=== PATIENT | female | born 1945 | race Caucasian/White ===

== ENCOUNTER 2019-11-16 16:56 | Inpatient (IN) ==
--- NOTE | 2019-11-16 16:48 | Emergency Department Note ---
Impression & Plan Acute KS, Chest pain ED Provider Note Provider: Leonel Newman MD DATE OF SERVICE: 11/16/2019 CHIEF COMPLAINT: Chest pain HISTORY OF PRESENT ILLNESS: Patient is a 74-year-old female presenting via ambulance today with reports of chest pain. Called EMS prior to arrival who states that she was mowing the lawn and sat down and began to experience chest discomfort. Called EMS. There EKG was concerning for ST elevation. Made a heart alert prior to arrival. Patient is a history of hypertension hyperlipidemia. Was given aspirin, nitroglycerin, and some fentanyl prior to arrival as well as IV fluids. Patient on presentation endorses continued chest pain. She denies a cardiac history with stents but states several years ago she had a cardiac cath that was negative. States the pain radiates straight to her back and states he was bit nauseous earlier. Denies a history of similar pain. 8 out of 10 chest pain. REVIEW OF SYSTEMS: A total of 10 review of systems was obtained and negative except as stated above in the HPI. PAST MEDICAL HISTORY: As noted above MEDICATIONS: Reviewed home medications which include atorvastatin among others SOCIAL HISTORY: lives at home with PHYSICAL EXAM: GENERAL: alert and oriented in no acute distress on stretcher Head: normocephalic and atraumatic EYES: No injection, discharge or icterus. NECK: Trachea midline. Supple. ENT: Mucous membranes pink and moist. LUNGS: Airway patent. No retractions. Breath sounds clear with good air entry bilaterally. HEART: Regular rate and rhythm. No chest wall tenderness ABDOMEN: Soft and non-tender, without guarding or rebound. SKIN: Acyanotic, warm, dry, without rashes EXTREMITIES: Without swelling, tenderness or deformity NEUROLOGICAL: No focal deficits. No aphasia. No facial droop or slurred speech. EK beats minute normal sinus rhythm. No PVCs. Patient does have anterior particular V2 ST elevation welling some slight lead I and aVL ST changes. No priors to today were available as she is not been in the system before. Patient's hypertension was referred to the hospitalist/information security risk analyst Patient's laboratory studies reviewed. Differential includes Cardiac ischemia, aortic dissection, pulmonary embolism, pneumothorax, pneumonia, pericarditis, myocarditis, esophageal rupture, GERD, cholecystitis, pancreatitis, musculoskeletal, as well as other pathologies. IMPRESSION/MEDICAL DECISION MAKING: Onset chest pain after exertion concerning EKG changes concerning for ST segment elevation [place]. Dr. Mejia cardiology at bedside and consenting patient on review of case. Patient was given aspirin prior to arrival with fentanyl with minimal change in symptoms. No trauma history. Does not seem infectious given the history. Given EKG changes heart alert was called prior to arrival and was evaluate by cardiology here. Does have multiple cardiac risk factors. Given concern for ST segment KS was taken to the [facility] for further diagnostic and possible therapeutic interventions. Basic labs were sent without evidence of anemia or leukocytosis. No evidence of severe renal dysfunction. Troponin is elevated on labs when they returned consistent with concern for ST elevation and coronary ischemia. No evidence of transaminitis or lipase elevation. Further anticoagulation with plavix/brillinta or heparin deferred to electroplating laborer team as there were present and ready to take the patient to the lab. Chest xray deferred in discussion with cardiology. DIAGNOSIS: ST segment elevation KS, chest pain DISPOSITION: Transfer to the [facility] Critical Care I have personally spent 31 minutes of critical care time in the direct ma nagement of this patient. This includes bedside care, interpretation of diagnostic studies, and testing, discussion with consultants, patient, and family members, and other required patient management activities. These 31 minutes is in excess of all separately billable procedures. Past Med/Surg History Social History Smoking Status: Unknown if ever smoked Feels Safe at Home: Yes Results & Data (ED) Vital Signs Vital Signs - 24 hr 11/16/19 17:02 11/16/19 17:03 11/16/19 17:05 Temperature 37.0 C Temperature Source Oral Pulse Rate 66 69 72 Respiratory Rate 18 Blood Pressure 123/73 123/73 Blood Pressure Mean 85 89 Pulse Oximetry 94 Oxygen Delivery Method Room Air Sepsis Recent Fever Within 48 Hours No Sepsis New/Unexplained Change in Mental Status No Sepsis Action Taken by Nursing No Action Required Laboratory Data Result diagrams: 11/16/19 17:06 11/16/19 17:06 Lab Results 11/16/19 11/16/19 11/16/19 Range/Units 17:06 17:06 17:06 WBC 9.94 (4.8-10.8) K/uL RBC 4.34 (4.2-5.4) M/uL Hgb 13.1 (12.0-16.0) g/dL Hct 39.2 (37-47) % MCV 90.3 (80-100) fL MCH 30.2 (25-34) pg MCHC 33.4 (32-36) g/dL RDW Std Deviation 44.8 (36.4-46.3) fL RDW Coeff of Khurram 13.5 (11.5-14.5) % Plt Count 195 (130-400) K/uL MPV 11.4 H (7.4-10.4) fL Immature Gran % (Auto) 0.3 % Neut % (Auto) 67.3 % Lymph % (Auto) 22.8 % [place] % (Auto) 6.6 % Eos % (Auto) 2.5 % Baso % (Auto) 0.5 % Neut # (Auto) 6.68 H (1.4-6.5) K/uL Lymph # (Auto) 2.27 (1.2-3.4) K/uL [place] # (Auto) 0.66 H (0.11-0.59) K/uL Eos # (Auto) 0.25 (0-0.5) K/uL Baso # (Auto) 0.05 (0-0.2) K/uL Immature Gran # (Auto) 0.03 H (0.00-0.02) K/uL PT 10.6 (9.0-12.0) Seconds INR 1.0 (0.9-1.1) APTT 22.4 (21.0-31.0) Seconds PTT Ratio 0.8 Sodium 140 (136-145) mmol/L Potassium 3.7 (3.5-5.1) mmol/L Chloride 108 H (98-107) mmol/L Carbon Dioxide 22 (21-32) mmol/L Anion Gap 10.0 (3-11) BUN 22 H (7-18) mg/dl Creatinine 1.19 (0.6-1.2) mg/dl Est Cr Clr Drug Dosing 57.7 ml/min Est GFR ( Amer) 52.8 Est GFR (Non-Af Amer) 45.6 BUN/Creatinine Ratio 18.7 (10-20) Glucose 155 H (70-99) mg/dl Calcium 8.9 (8.5-10.1) mg/dl Magnesium 2.1 (1.8-2.4) mg/dl Total Bilirubin 0.3 (0.2-1) mg/dl AST 26 (15-37) U/L ALT 20 (12-78) U/L Alkaline Phosphatase 68 (45-117) U/L Total Creatine Kinase 156 (26-192) U/L CK-MB (CK-2) 13.2 H (0.5-3.6) ng/ml CK/CKMB % Calc 8.5 H (0-3.0) Troponin I 0.866 H* (0-0.045) ng/ml Total Protein 7.2 (6.4-8.2) gm/dl Albumin 3.7 (3.4-5.0) gm/dl Globulin 3.5 (2.5-4.0) gm/dl Albumin/Globulin Ratio 1.1 (0.9-2) Lipase 114 (73-393) U/L TSH 3.400 (0.300-4.500) uIu/ml Administered Medications Discontinued Medications Eptifibatide (Eptifibatide 2 Mg/Ml 10 Ml Vial ([facility] Use Only)) Confirm Adm inistered Dose 40 mg IV .STK-MED ONE Stop: 11/16/19 17:36 Last Admin: 11/16/19 17:56 Dose: 22.6 ml Documented by: [id number] Eptifibatide (Eptifibatide 0.75 Mg/Ml 75mg Vial ([facility] Use Only)) Confirm Administered Dose 75 mg .ROUTE .STK-MED ONE Stop: 11/16/19 17:37 Last Increment: 11/16/19 18:14 Dose: 20 mg Documented by: [id number] Fentanyl Citrate (Fentanyl Citrate 100 Mcg/2 Ml Vial) Confirm Administered Dose 100 mcg .ROUTE .STK-MED ONE Stop: 11/16/19 16:42 Last Increment: 11/16/19 18:13 Dose: 25 mcg Documented by: [id number] Heparin Sodium (Porcine) (Heparin (Porcine) 1000 Unit/Ml 10 Ml ([facility] Use Only)) Confirm Administered Dose 10,000 units .ROUTE .STK-MED ONE Stop: 11/16/19 16:42 Last Admin: 11/16/19 18:12 Dose: 8,000 units Documented by: [id number] Heparin Sodium/Sodium Chloride (Heparin In Nss Infusion 1000 Unit/500 Ml (2 U/Ml) Bag) Confirm Administered Dose 3,000 units IV .STK-MED ONE Stop: 11/16/19 16:42 Last Admin: 11/16/19 17:55 Dose: 3,000 units Documented by: [id number] Midazolam HCl (Midazolam Hcl 1 Mg/Ml 2ml Vial) Confirm Administered Dose 2 mg .ROUTE [email or web address] ONE Stop: 11/16/19 16:42 Last Increment: 11/16/19 18:12 Dose: 1 mg Documented by: [id number] Nicardipine HCl (Nicardipine Hcl Inj 2.5 Mg/Ml 10 Ml Amp) Confirm Administered Dose 25 mg .ROUTE [email or web address] ONE Stop: 11/16/19 16:42 Last Admin: 11/16/19 17:55 Dose: 25 mg Documented by: [id number] Nitroglycerin/Dextrose (Nitroglycerin/D5w 100mcg/Ml 20ml Syr) Confirm Administered Dose 2,000 mcg .ROUTE .[employer] ONE Stop: 11/16/19 16:43 Last Admin: 11/16/19 17:55 Dose: 2,000 mcg Documented by: [id number] Ondansetron HCl (Ondansetron Inj 2 Mg/Ml 2 Ml Vial) Confirm Administered Dose 4 mg .ROUTE .[employer]ify ONE Stop: 11/16/19 17:12 Last Admin: 11/16/19 17:56 Dose: 4 mg Documented by: [id number] Ticagrelor (Ticagrelor 90 Mg Tab) Confirm Administered Dose 180 mg PO .Estify ONE Stop: 11/16/19 17:12 Last Admin: 11/16/19 17:56 Dose: 180 mg Documented by: [id number] Discharge Plan Visit Data Chief Complaint: Heart Alert Stated Complaint: HEART ALERT ED Provider: Leonel Newman Discharge Problem: Acute KS, Chest pain Discharge Instructions Interventions: ED Discharge Assessment Last Done: 11/16/19 17:08 Forms Stand Alone Forms: [facility] Referrals Referrals: PCP,NO [Primary Care Provider] - Discharge Problem: Acute KS Qualifiers: Myocardial infarction type: ST elevation myocardial infarction Involved coronary artery: unspecified coronary artery Qualified Code(s): I21.3 - ST elevation (STEMI) myocardial infarction of unspecified site Chest pain Qualifiers: Chest pain type: unspecified Qualified Code(s): R07.9 - Chest pain, unspecified
[~2019-11-16 16:56] MED LIST: HEPARIN (PORCINE) 1000 UNIT/ML 10 ML (CATH LAB USE ONLY) ONE; MIDAZOLAM HCL 1 MG/ML 2ML VIAL ONE; NITROGLYCERIN/D5W 100MCG/ML 20ML SYR ONE; NiCARDipine HCL INJ 2.5 MG/ML 10 ML AMP ONE; fentaNYL citrate 100 MCG/2 ML VIAL ONE
[2019-11-16] MEDS ORDERED: ONDANSETRON INJ 2 MG/ML 2 ML VIAL ONE (17:11)
[2019-11-16] MEDS ORDERED: TICAGRELOR 90 MG TAB PO ONE (17:11)
--- NOTE | 2019-11-16 17:11 | Pre Anesthesia Assessment ---
Date of Service November 16, 2019 Pre Sedation Assessment Cardiovascular RRR, no murmur, no edema Respiratory normal respiratory effort, lungs clear to auscultation Pre-Sedation Airway Assessment Smoking Status: Unknown if ever smoked Hx Sleep Apnea: No Hx Difficult Intubation: No Short, Thick Neck: No Thyromental Distance: > or= 3.5 Finger Breadths Oral Cavity: + Dental Abnormalities ASA: ASA4 Procedure Planning Contraindications for Sedation: none Current Medications Reviewed: Yes Notes The planned sedation has been discussed with the patient. Informed Consent was obtained. I have identified the patient, determined the appropriateness of sedation and have assessed the patient immediately prior to the procedure. All medicine(s) and interventions are by my order.
--- NOTE | 2019-11-16 17:15 | Cardiology Consultation ---
Date of Consultation November 16, 2019 Assessment & Plan (1) Acute CT: Presentation consistent with anterolateral STEMI and recommend proceeding with emergent cardiac catheterization and likely primary PCI. No apparent contraindications to procedure. Discussed risks, benefits, alternatives of procedure with patient and they are willing to proceed. Further recommendations pending findings of coronary angiography. History of Present Illness History of Present Illness 76-year-old woman here with acute chest pain and ECG concerning for acute CT. Patient seen emergently in the ED after heart alert activated en route by EMS. Past cardiac history remarkable for remote heart catheterization by Dr. Muller. Per patient told she has small vessel disease if not require stenting. Cardiac risk factors include hypertension, dyslipidemia. No other significant medical issues. Chest pain began approximately 20 minutes prior to calling EMS. Symptoms began after she was mowing her lawn with a push mower. Describes 8/10 substernal pain with associated vomiting, diaphoresis. Denies similar symptoms in the past. Given nitroglycerin, fentanyl in route. Pain down to 6/10 on arrival. Hemodynamically stable. EKG showed sinus rhythm with lateral ST elevations and occasional PVCs. Patient History Social History Smoking Status: Unknown if ever smoked Feels Safe at Home: Yes Review of Systems Review of Systems: Not obtained in the setting of emergent situation Physical Exam Physical Exam: General: Uncomfortable HEENT: Sclerae anicteric, mucous membranes moist Lungs: Clear to auscultation bilaterally, no rhonchi or wheezes Cardiac: Tachycardic, regular, no murmurs Abdomen: Soft, nontender Extremities: Warm, well perfused, no edema. 2+ radial pulses Skin: No rashes or lesions. Neuro: Nonfocal Psych: Alert orient x3, normal affect and mood PG Care Time/CCT Total # of Minutes Spent Total Time Spent with Patient: Total time spent is greater than 50% in coordination of care (as documented) at patient's floor/unit and/or counseling patient: Coding Level of Care Code 57894 Inpt Consult Level [address] I21.9
[2019-11-16 17:21] LABS: Basophils # (auto) 0.05 K/uL (0-0.2); Basophils % (auto) 0.5 %; Eosinophils # (auto) 0.25 K/uL (0-0.5); Eosinophils % (auto) 2.5 %; Hematocrit (blood only) 39.2 % (37-47); Hemoglobin 13.1 g/dL (12.0-16.0); Immature Granulocytes # (auto) 0.03 K/uL (0.00-0.02); Immature Granulocytes % (auto) 0.3 %; Lymphocytes # (auto) 2.27 K/uL (1.2-3.4); Lymphocytes % (auto) 22.8 %; Mean Corpuscular Hemoglobin 30.2 pg (25-34); Mean Corpuscular Hgb Conc 33.4 g/dL (32-36); Mean Corpuscular Volume 90.3 fL (80-100); Mean Platelet Volume 11.4 fL (7.4-10.4); Monocytes # (auto) 0.66 K/uL (0.11-0.59); Monocytes % (auto) 6.6 %; Neutrophils # (auto) 6.68 K/uL (1.4-6.5); Neutrophils % (auto) 67.3 %; Platelet Count 195 K/uL (130-400); RDW Coefficient of Variation 13.5 % (11.5-14.5); RDW Standard Deviation 44.8 fL (36.4-46.3); Red Blood Count 4.34 M/uL (4.2-5.4); White Blood Count 9.94 K/uL (4.8-10.8)
[2019-11-16 17:32] LABS: Partial Thromboplastin Ratio 0.8; Partial Thromboplastin Time 22.4 Seconds (21.0-31.0); Prothrombin Time 10.6 Seconds (9.0-12.0)
[2019-11-16] MEDS ORDERED: EPTIFIBATIDE 2 MG/ML 10 ML VIAL (CATH LAB USE ONLY) IV ONE (17:35)
[2019-11-16 17:38] LABS: Albumin Level 3.7 gm/dl (3.4-5.0); BUN Creatinine Ratio 18.7 (10-20); Calcium 8.9 mg/dl (8.5-10.1); Creatinine Clr Calc Pharmacy 57.7 ml/min; Est GFR (African American) 52.8; Est GFR (Non-African American) 45.6; Magnesium 2.1 mg/dl (1.8-2.4); Potassium 3.7 mmol/L (3.5-5.1)
[2019-11-16] MEDS: EPTIFIBATIDE 0.75 MG/ML 75MG VIAL (CATH LAB USE ONLY) ONE ×2 (17:56→18:14)
[2019-11-16 18:12] LABS: Albumin Globulin Ratio 1.1 (0.9-2); Bilirubin,Total 0.3 mg/dl (0.2-1); Creatine Kinase MB 13.2 ng/ml (0.5-3.6); Globulin 3.5 gm/dl (2.5-4.0); Thyroid Stimulating Hormone 3.4 uIu/ml (0.300-4.500); Total Protein 7.2 gm/dl (6.4-8.2); Troponin I 0.866 ng/ml (0-0.045)
--- NOTE | 2019-11-16 18:33 | Post Anesthesia Assessment ---
Date of Service November 16, 2019 Post Sedation Assessment Vital Signs Temp Pulse Resp BP Pulse Ox 11/16/19 17:05 72 11/16/19 17:03 98.6 F 69 18 123/73 94 11/16/19 17:02 66 123/73 Recovery Score Activity: Moves 4 extremities Respiration: Deep Breath/Cough Circulation: +/-20% PreAnes Value Consciousness: Fully Awake Oxygen Saturation: O2 needed for >90% Discharge Sedation Level of Care: Fast Track Phase II Post Sedation Plan On clinical assessment, the patient appears to have tolerated the sedation without complications. Patient is recovering as anticipated. Patient will continue to be monitored by nursing and may be discharged when sedation discharge criteria are met per below protocol. Upon Completions of procedure up to 15 minutes continue every 5 minute vital signs and the P.A.R. score; then discharge to a Phase I or Fast Track to Phase II per the following guidelines: * Discharge Patient to appropriate Phase II area if PAR is 8 or greater or return to pre- procedure baseline. The post - procedure orders will be as directed. * If PAR score is less than 8 or not return to pre-procedure baseline then patient will follow Phase I monitoring till PAR is reached for Phase II. The Phase I may be done in procedure room or may call to secure a Phase I area. * If naloxone or flumazenil are used for reversal, hold in Phase I for continued monitoring from when last reversal dose was given for a minimum of 60 minutes or longer pending the nurse and/or physician discretion of patient condition before discharge to Phase II. Please call the Sedation Physician to re-evaluate and complete post-note for discharge to Phase II area. Do NOT discharge from procedure sedation or Phase 1 until post- sedation evaluation note is complete by procedure /sedation MD Sedation Discharge Instructions to be given to the patient at discharge to home.
[2019-11-16] MEDS ORDERED: ONDANSETRON INJ 2 MG/ML 2 ML VIAL IV PRN (18:35)
[2019-11-16] MEDS ORDERED: EPTIFIBATIDE BOLUS/DRIP IV STA (18:35)
[2019-11-16] MEDS ORDERED: ACETAMINOPHEN 325 MG TAB PO PRN (18:35)
[2019-11-16] MEDS ORDERED: ATROPINE SULFATE 0.1 MG/ML 10ML SYR IV PRN (18:35)
[2019-11-16] MEDS ORDERED: NITROGLYCERIN SL 0.4 MG/TAB TAB SL PRN (18:35)
[2019-11-16] MEDS ORDERED: ICU PROTOCOL FOR HYPERGLYCEMIA PRN (18:40)
[2019-11-16] MEDS: EPTIFIBATIDE 75 MG/100 ML VIAL IV SCH ×2 (18:45→23:45)
--- NOTE | 2019-11-16 19:01 | Cardiac Catheterization ---
[facility] Data: Granulator Cardiac Status Clinical evaluation leading to the procedure CAD Presenation: STEMI Anginal Classification: CCS IV Heart Failure: No Cardiogenic Shock within 24 Hours: No Cardiac Arrest within 24 Hours: No Imaging Studies Past 6 Months: No Stress Studies Past 6 Months: No Diagnostic Physicians Name: Jeff Mejia MD Status: Emergency Closure Device Percutaneous Entry Location: Radial Closure Device: Radial Band Recommendations: PCI without planned CABG PCI Indication: Immediate PCI for STEMI First Noted: First EKG Lesion Segment Name: Proximal LAD Culprit Artery: Yes Stenosis Prior to Rx (%): 100 Chronic Total Occlusion: No IVUS: Yes FFR: No Pre-Procedure SELVIN Flow: 0 Previously Treated Lesion: No Lesion Complexity: Non-High/Non-C Lesion Length (mm): 45 Thrombus Present: Yes Bifurcation Lesion: Yes Guidewire Across Lesion: Stenosis Post-Procedure (%): 0 Post-Procedure SELVIN Flow: 3 Devices(s) Deployed: Yes Yes Intraprocedure Events Significant Disection: No Perforation: No Cardiac Cath Procedure Full Procedure Date November 16, 2019 Pre-Procedure Diagnosis Pre-Procedure Diagnosis: STEMI AUC Score AUC Score: 9 Post-Procedure Diagnosis Post-Procedure Diagnosis: Severe CAD, Successful PCI and Elevated Intracardiac Pressures Procedure(s) Performed Procedure(s) Performed: Coronary Angiography, Left Heart Cath, LV Angiography, Drug Eluting Stent and IVUS Financial Administration Officer Jeff Mejia MD Automation Software Engineer(s) Bello Estimated Blood Loss Estimated Blood Loss: 15 Medication(s) Medication(s): Fentanyl, Heparin, Integrilin, Lidocaine 1%, Nicardipine, Nitroglycerin and Versed Medication(s): Ticagrelor Summary of Findings Indication: STEMI/Heart Alert Access: 6 Fr slender right radial artery Catheters: EBU 3.0 guide, diagnostic JR4, pigtail Findings: LM -medium caliber vessel, luminal irregularities LAD -acute 100% proximal occlusion Circumflex -medium caliber vessel, 20% diffuse mid segment disease, large OM 3 without significant disease RCA -dominant, medium caliber, angiographically normal LVEDP -36 LVEF 40% with anterior, apical hypokinesis -- PCI -- Antithrombotic therapy: Heparin, ticagrelor, Integrilin Procedure: Left main cannulated with EBU 3.0 guide Lamp Tester And Inspector 50 wire passed across lesion into distal vessel Proximal to mid LAD lesion predilated with 2.5 compliant balloon Noted to have diffuse disease extending to mid segment with heavy thrombus burden Started on IC Integrilin IVUS used to assess extent of disease, degree of calcification and for vessel sizing. Noted to have severe diffuse disease from ostium to mid segment with thrombus. Mildly calcified. Dilated mid segment stented with 2.75 x 33 mm Xience Grace Ostial/proximal segment stented with 3.5 x 28 mm Xience Grace overlapping with proximal aspect of initial stent Small caliber second diagonal wired with aircraft pilot 50 wire Stent post-dilated with 4.0 noncompliant balloon IC vasodilators administered for spasm Repeat IVUS showed well apposed, well-expanded stents ending proximally just at the ostium Post procedure SELVIN 3 flow, stent well expanded with minimal residual stenosis and no apparent cardiac complications. SELVIN I-II flow in small second diagonal improving at end of procedure. Arterial Closure: TR band Summary: 1. Acute 100% proximal LAD occlusion 2. Minimal non-culprit vessel coronary artery disease 3. Elevated intracardiac filling pressure 4. Successful PCI of ostial to mid LAD with 2 overlapping drug-eluting stents (3.5 x 28, 2.75 x 33 mm Xience Grace; postdilated with 4.0 NC). Recommendations: Admit to ICU for continued monitoring Continue Integrilin infusion for 6 hours Loaded with ticagrelor 180 mg in Granulator Continue dual-antiplatelet therapy for at least 1 year. Trend troponins until peak, Check Echo Uptitrate beta-janelle/JESUS MANUEL as BP allows High-dose statin Consult cardiac Rehab Hemodynamics Rest Ao:: 115/54/83 Final Ao: 126/64/77 LV: 127/36 Recommendations Recommendations: PCI without planned CABG Specimens Specimens: None Radiation Exposure (mGy) 2986 Contrast (mls) 130 Fluids (cc crystalloids) Fluids (cc crystalloids): 110 Drains Drains: None Anesthesia Moderate Procedural Complication(s) None Disposition ICU I attest to the content of the Intraoperative Record and any orders documented therein. Any exceptions are noted below. [facility] Card Cath Procedure Codes Cardiac Catheterization Procedure 1: Cardiovascular Cath Procedures: 23272 Coronaries and LHC (+/-LV) Therapeutic Services & Ancillary Proc Procedure 1: Cardiovascular Tx and Anc Procedures: 90591 IV Ultrasound (Coronary or Graft) Moderate Sedation Procedure 1: Sedation/Anesthesia: 65650 Mod Sedation by the same physician;Init15 Min Child Age 5 & Up Procedure 2: Sedation/Anesthesia: 74497 Mod Sedation by the same physician; Ea [id number] Minutes Stenting Procedure 1: Cardiovascular Stent Procedures: 77639 Perc transluminal revascularization of acute sub/total occl, aMI PG Care Time/CCT Total # of Minutes Spent Total Time Spent with Patient: Total time spent is greater than 50% in coordination of care (as documented) at patient's floor/unit and/or counseling patient:
--- NOTE | 2019-11-16 19:20 | Critical Care Consultation ---
Date of Consultation November 16, 2019 Assessment & Plan (1) STEMI (ST elevation myocardial infarction): Reason Critically Ill: 74-year-old female presents to the ICU following STEMI and receiving PCI with ADEN x2 to the LAD Neuro - [facility] ICU: HEAD: No headache, dizziness, or head injury. Cardiac - STEMIstatus post heart cath with successful PCI with ADEN x2 to the LAD for 100% occlusion -Appreciate cardiology recommendations -We will continue Integrilin drip for 6 hours as patient was noted to have residual clotting during procedure Loaded with ticagrelor 180 mg in [facility] -Trending troponins -Follow-up echo report in a.m. -Maximize electrolytes -Dual antiplatelet therapy for 1 year -Continue beta-janelle and high-dose statin -Monitor on telemetry in ICU overnight Respiratory - Hypoxiano history of pulmonary disease, now requiring 6 L nasal cannula -Would suspect there is pulmonary congestion following acute WI, will give IV diuretic if unable to wean from O2 -Continuous monitoring with pulse ox and wean oxygen as tolerated GI - Heart healthy diet RENAL/LYTES - Creatinine within normal limits, monitor electrolytes and replete as indicated - Strict I's and O's ENDO - No history of diabetes or thyroid disease TSH within normal limit ICU hyperglycemic protocol HEME - H&H stable, monitor routine CBCs ID - No indication for infectious process at this time LINES/IV ACCESS - Peripheral IVs DVT PROPHYLAXIS - SCDs, currently on Integrilin drip Thank you for allowing us to participate in the care of this patient. Please refer to my attending physician's documentation for any further recommendations. (2) HTN (hypertension): (3) Dyslipidemia: (4) CAD (coronary artery disease): (5) Chest pain: (6) Acute WI: Supervising Physician Co-Signing Physician Notes I have personally evaluated and examined this patient. I agree with assessment and plan of Cameron WEAVER. Please refer to my resident documentation which is reflective of my evaluation of the patient. History of Present Illness Attending Physician: Jeff Mejia MD History of Present Illness 74-year-old female with PMH of HTN, dyslipidemia and prior heart cath where she was noted to have small vessel disease not requiring stenting. She presented to the emergency department earlier today with acute chest pain that started about 20 minutes prior to calling EMS, which had started while she was mowing her lawn. She describes symptoms 8/10 substernal pain with associated vomiting and diaphoresis. On arrival she was found to have lateral ST elevations on the EKG and elevated troponin. Heart alert was initiated patient was taken to [facility] where she was found to have 100% occlusion of the LAD. She underwent successful PCI of ostial to mid LAD with 2 overlapping ADEN. She was placed on Integrilin drip prior to transfer. She now presents to the ICU post cath with stenting for further management and observation following STEMI. On arrival to the ICU patient is alert and oriented and hemodynamically stable. She appears comfortable and states that her chest pain has significantly better and rates it as a 1/10. She currently denies headache, dizziness, syncope, shortness of breath, nausea or vomiting, recent illness or fevers, palpitations, abdominal pain. She did state that since she has been having bilateral leg swelling for the past couple of days, which has not been an issue in the past. Allergies Allergy/AdvReac Type Severity Reaction Status Date / Time Penicillins Allergy Intermediate Rash Verified 11/16/19 21:27 Home Medications Home Medications Medication Instructions Recorded Confirmed Type amlodipine-benazepril 1 cap PO DAILY 11/17/19 11/17/19 History atorvastatin 20 mg PO DAILY 11/17/19 11/17/19 History citalopram 20 mg PO DAILY 11/17/19 11/17/19 History dicyclomine [Bentyl] 10 mg PO DAILY 11/17/19 11/17/19 History Patient History Medical History (Updated 11/17/19 @ 00:53 by Dangelo Colindres MD) Dyslipidemia HTN (hypertension) IBS (irritable bowel syndrome) Morbid obesity with BMI of 40.0-44.9, adult Social History Smoking Status: Never smoker Hx Alcohol Use: Yes Alcohol type: beer Hx Substance Use: No Preferred Language: Somali Communication Ability: Effective Data Administrator Required: No Beliefs That Will Affect Care: None marital status: Current Living Situation: Spouse Other Information That Helps Us Care for You: No Feels Safe at Home: Yes Safety Concerns: Feels Safe At This Time Review of Systems Review of Systems: All systems reviewed & are unremarkable except as noted in HPI & below Physical Exam Constitutional: WD/WN, vitals as above cooperative and comfortable Eyes: PERRL, conjunctivae normal, anicteric sclerae ENMT: external ear and nose normal, oropharynx normal Neck: trachea midline, no thyromegaly Respiratory: normal respiratory effort, lungs clear to auscultation Auscultation: no crackles and no wheezes Cardiovascular: Rate/Rhythm: regular rate and regular rhythm Heart Sounds: normal S1 and normal S2 Vessels: no JVD Bilateral lower extremity edema +1 Gastrointestinal (Abdomen): normal bowel sounds, soft, nontender, no hepatosplenomegaly Musculoskeletal: no cyanosis or clubbing, extremities motor strength 5/5 Skin: no rashes, warm and dry Neurologic: PERRL, EOMI, accommodation nl, no face palsy, no dysarthria Psychiatric: A+Ox3, euthymic affect Results & Data Results & Data ([facility]) Vital Signs (Past 12 Hours) Vital Signs Temp Pulse Resp BP Pulse Ox 11/16/19 17:05 72 11/16/19 17:03 37.0 C 69 18 123/73 94 11/16/19 17:02 66 123/73 Coding Level of Care Code 14564 Office/OBS Consult Lvl 5 Diagnoses STEMI (ST elevation myocardial infarction) I21.3 HTN (hypertension) I10 Dyslipidemia E78.5 CAD (coronary artery disease) I25.10 Chest pain R07.9 Chest pain type: unspecified Acute WI I21.3 Involved coronary artery: unspecified coronary artery Myocardial infarction type: ST elevation myocardial infarction (1) Acute WI Involved coronary artery: unspecified coronary artery Myocardial infarction type: ST elevation myocardial infarction Qualified Code(s): I21.3 - ST elevation (STEMI) myocardial infarction of unspecified site (2) Chest pain Chest pain type: unspecified Qualified Code(s): R07.9 - Chest pain, unsp ecified
[2019-11-16] MEDS: METOPROLOL TARTRATE 25 MG TAB PO SCH (21:43)
[2019-11-16] MEDS ORDERED: FUROSEMIDE 20 MG in SYRINGE 0 ML IV ONE (21:45)
[2019-11-16 22:20] LABS: Appearance Urine Clear (Clear); Bacteria Urine Automated Negative (Negative); Bilirubin Urine Negative (Negative); Blood Urine 1+ (Negative); Color Urine Yellow; Glucose Urine UA Negative (Negative); Ketones Urine Negative (Negative); Leukocyte Esterase Urine Negative (Negative); Nitrite Urine Negative (Negative); Protein Urine Negative (Negative); RBC Urine Automated 0-4 /hpf (0-4); Specific Gravity Urine 1.036 (1.000-1.030); Urobilinogen Urine Negative (Negative); pH Urine 5.5 (4.5-7.5)
[2019-11-16] MEDS ORDERED: ALBUMIN 5% 250 ML IV SCH (23:30)
--- NOTE | 2019-11-17 01:01 | History & Physical Report ---
Date of Service November 17, 2019 Assessment & Plan (1) STEMI (ST elevation myocardial infarction): Continue ASA 81mg daily. Brilinta 90 mg daily metoprolol tartrate 25mg bid lisinopril 5mg daily. Stop amlodipine 10mg daily. Stop benazepril 20mg daily Present on Admission?: Yes (2) Admitted to intensive care unit: Admission to ICU for post cath management. Consult ICU Dr. Mace and interventional cardiology Dr. Mejia Present on Admission?: Yes (3) IBS (irritable bowel syndrome): continue citalopram 20mg daily and dicyclomine 10 mg daily Present on Admission?: Yes (4) Dyslipidemia: change atorvastatin from 20 to 80mg daily. check a FLP amd HbA1c Present on Admission?: Yes (5) CAD (coronary artery disease): see above Present on Admission?: Yes (6) HTN (hypertension): see above Present on Admission?: Yes (7) Morbid obesity with BMI of 40.0-44.9, adult: discuss dietary and post procedure interventions Present on Admission?: Yes Admission and Anticipated Discharge Date Admission Date: November 16, 2019 History of Present Illness Chief Complaint: The patient presented to the ED via EMS with complaint of chest pain radiating to her back that began after she sat down after she was mowing her lawn. She was made a heart alert prior to arrival due to possible STEMI Primary Care Provider: NO PCP The patient is a 74 yo female with PMH including HTN, ISB, HLD and obesity who presented as above. She was taken emergently to the geoscience laboratory technician by Dr. Mejia, and received ADEN x 2 to a 100% proximal LAD lesion. She was then taken to the ICU for post procedure management. Allergies Allergy/AdvReac Type Severity Reaction Status Date / Time Penicillins Allergy Intermediate Rash Verified 11/16/19 21:27 Home Medications Home Medications Medication Instructions Recorded Confirmed Type amlodipine-benazepril 1 cap PO DAILY 11/17/19 11/17/19 History atorvastatin 20 mg PO DAILY 11/17/19 11/17/19 History citalopram 20 mg PO DAILY 11/17/19 11/17/19 History dicyclomine [Bentyl] 10 mg PO DAILY 11/17/19 11/17/19 History Past Med/Surg History Medical History (Updated 11/17/19 @ 00:53 by Dangelo Colindres MD) Dyslipidemia HTN (hypertension) IBS (irritable bowel syndrome) Morbid obesity with BMI of 40.0-44.9, adult Social History Smoking Status: Never smoker Hx Alcohol Use: Yes Alcohol type: beer Hx Substance Use: No Preferred Language: Hungarian Communication Ability: Effective Edge Beader Required: No Beliefs That Will Affect Care: None Current Living Situation: Spouse Other Information That Helps Us Care for You: No Feels Safe at Home: Yes Safety Concerns: Feels Safe At This Time Review of Systems Review of Systems: Postprocedure, the patient denies chest pain, palpitations, shortness of breath, dyspnea on exertion, cough, sore throat, fevers, chills, sweats, nausea, vomiting, diarrhea , constipation, abdominal pain, pelvic pain, blood in urine or stool, dysuria, urinary frequency or urgency, headache, imbalance, focal weakness, numbness or tingling in arms or legs, generalized arthralgias or myalgias, back or neck pain, or night sweats. The review of systems is otherwise negative other than for that already noted above, and at least 10 systems have been reviewed. Physical Exam Physical Exam: The patient is awake, alert and oriented 3, normocephalic and atraumatic, lying in bed and in no acute distress. HEENT--PERRL, EOMI, mucous membranes and oropharynx normal. Neck--supple. No JVD. No bruits. Thyroid normal, trachea midline, no adenopathy. Heart--normal S1 and S2. No murmurs, rubs or gallops. Lungs--clear bilaterally, no respiratory distress, no accessory muscle use. Abdomen--normal bowel sounds and soft. Nontender. Nondistended. Extremities--no cyanosis or clubbing. No edema. Dermatologic--normal skin turgor, normal color. Neurologic--cranial nerves II through XII grossly intact. Rheumatologic--normal range of motion. Psychiatric--normal affect. Results & Data Results & Data ([facility]) Vital Signs (Past 12 Hours) Vital Signs Temp Pulse Pulse Resp BP BP Pulse Ox 11/17/19 00:20 98.1 F 58 L 18 108/74 94 11/16/19 23:20 59 L 18 115/82 93 11/16/19 22:20 64 18 125/68 94 11/16/19 21:29 75 21 124/78 90 11/16/19 20:20 68 18 130/80 91 11/16/19 19:50 66 22 123/90 93 11/16/19 19:17 67 22 122/78 95 11/16/19 19:02 64 21 131/81 90 11/16/19 18:47 97.9 F 65 20 114/69 91 11/16/19 17:05 72 11/16/19 17:03 98.6 F 69 18 123/73 94 11/16/19 17:02 66 123/73 Laboratory Results Laboratory Results WBC 9.94 K/uL (4.8-10.8) 11/16/19 17:06 RBC 4.34 M/uL (4.2-5.4) 11/16/19 17:06 Hgb 13.1 g/dL (12.0-16.0) 11/16/19 17:06 Hct 39.2 % (37-47) 11/16/19 17:06 MCV 90.3 fL (80-100) 11/16/19 17:06 MCH 30.2 pg (25-34) 11/16/19 17:06 MCHC 33.4 g/dL (32-36) 11/16/19 17:06 RDW Std Deviation 44.8 fL (36.4-46.3) 11/16/19 17:06 RDW Coeff of Khurram 13.5 % (11.5-14.5) 11/16/19 17:06 Plt Count 195 K/uL (130-400) 11/16/19 17:06 MPV 11.4 fL (7.4-10.4) H 11/16/19 17:06 Immature Gran % (Auto) 0.3 % 11/16/19 17:06 Neut % (Auto) 67.3 % 11/16/19 17:06 Lymph % (Auto) 22.8 % 11/16/19 17:06 Bibb % (Auto) 6.6 % 11/16/19 17:06 Eos % (Auto) 2.5 % 11/16/19 17:06 Baso % (Auto) 0.5 % 11/16/19 17:06 Neut # (Auto) 6.68 K/uL (1.4-6.5) H 11/16/19 17:06 Lymph # (Auto) 2.27 K/uL (1.2-3.4) 11/16/19 17:06 Bibb # (Auto) 0.66 K/uL (0.11-0.59) H 11/16/19 17:06 Eos # (Auto) 0.25 K/uL (0-0.5) 11/16/19 17:06 Baso # (Auto) 0.05 K/uL (0-0.2) 11/16/19 17:06 Immature Gran # (Auto) 0.03 K/uL (0.00-0.02) H 11/16/19 17:06 PT 10.6 Seconds (9.0-12.0) 11/16/19 17:06 INR 1.0 (0.9-1.1) 11/16/19 17:06 APTT 22.4 Seconds (21.0-31.0) 11/16/19 17:06 PTT Ratio 0.8 11/16/19 17:06 Activ Coag Time Kaolin 224 SECONDS (94-140) H 11/16/19 18:08 Sodium 140 mmol/L (136-145) 11/16/19 17:06 Potassium 3.7 mmol/L (3.5-5.1) 11/16/19 17:06 Chloride 108 mmol/L (98-107) H 11/16/19 17:06 Carbon Dioxide 22 mmol/L (21-32) 11/16/19 17:06 Anion Gap 10.0 (3-11) 11/16/19 17:06 BUN 22 mg/dl (7-18) H 11/16/19 17:06 Creatinine 1.19 mg/dl (0.6-1.2) 11/16/19 17:06 Est Cr Clr Drug Dosing 57.7 ml/min 11/16/19 17:06 Est GFR ( Amer) 52.8 11/16/19 17:06 Est GFR (Non-Af Amer) 45.6 11/16/19 17:06 BUN/Creatinine Ratio 18.7 (10-20) 11/16/19 17:06 Glucose 155 mg/dl (70-99) H 11/16/19 17:06 POC Glucose 163 mg/dl (70-99) H 11/16/19 20:34 Calcium 8.9 mg/dl (8.5-10.1) 11/16/19 17:06 Magnesium 2.1 mg/dl (1.8-2.4) 11/16/19 17:06 Total Bilirubin 0.3 mg/dl (0.2-1) 11/16/19 17:06 AST 26 U/L (15-37) 11/16/19 17:06 ALT 20 U/L (12-78) 11/16/19 17:06 Alkaline Phosphatase 68 U/L (45-117) 11/16/19 17:06 Total Creatine Kinase 156 U/L (26-192) 11/16/19 17:06 CK-MB (CK-2) 13.2 ng/ml (0.5-3.6) H 11/16/19 17:06 CK/CKMB % Calc 8.5 (0-3.0) H 11/16/19 17:06 Troponin I 0.866 ng/ml (0-0.045) H* 11/16/19 17:06 Total Protein 7.2 gm/dl (6.4-8.2) 11/16/19 17:06 Albumin 3.7 gm/dl (3.4-5.0) 11/16/19 17:06 Globulin 3.5 gm/dl (2.5-4.0) 11/16/19 17:06 Albumin/Globulin Ratio 1.1 (0.9-2) 11/16/19 17:06 Lipase 114 U/L (73-393) 11/16/19 17:06 TSH 3.400 uIu/ml (0.300-4.500) 11/16/19 17:06 Urine Color Yellow 11/16/19 22:05 Urine Appearance Clear (Clear) 11/16/19 22:05 Urine pH 5.5 (4.5-7.5) 11/16/19 22:05 Ur Specific [place] 1.036 (1.000-1.030) H 11/16/19 22:05 Urine Protein Negative (Negative) 11/16/19 22:05 Urine Glucose (UA) Negative (Negative) 11/16/19 22:05 Urine Ketones Negative (Negative) 11/16/19 22:05 Urine Blood 1+ (Negative) H 11/16/19 22:05 Urine Nitrite Negative (Negative) 11/16/19 22:05 Urine Bilirubin Negative (Negative) 11/16/19 22:05 Urine Urobilinogen Negative (Negative) 11/16/19 22:05 Ur Leukocyte Esterase Negative (Negative) 11/16/19 22:05 Urine WBC (Auto) 1-5 /hpf (0-5) 11/16/19 22:05 Urine RBC (Auto) 0-4 /hpf (0-4) 11/16/19 22:05 U Hyaline Cast (Auto) 1-5 /lpf (0-5) 11/16/19 22:05 U Epithel Cells (Auto) 10-20 /lpf (0-5) H 11/16/19 22:05 Urine Bacteria (Auto) Negative (Negative) 11/16/19 22:05 Nasal Screen MRSA (PCR) Negative (Negative) 11/16/19 19:30 Code Status & VTE Plan Code Status full code VTE Prophylaxis Plan VTE Prophylaxis will be ordered: Yes Critical Care Time Critical Care Time: Yes Total Critical Care Time: 40 PG Care Time/CCT Total # of Minutes Spent Total Time Spent with Patient: Total time spent is greater than 50% in coordination of care (as documented) at patient's floor/unit and/or counseling patient: Critical Care Time: Yes Total Critical Care Time: 40 Coding Level of Care Code 69687 Initial Inpt Care Lvl 3 Diagnoses STEMI (ST elevation myocardial infarction) I21.3 Admitted to intensive care unit Z78.9 IBS (irritable bowel syndrome) K58.9 Dyslipidemia E78.5 CAD (coronary artery disease) I25.10 HTN (hypertension) I10 Morbid obesity with BMI of 40.0-44.9, adult E66.01; Z68.41 Additional Codes Critical Care Time - Critical Care Time: Yes ([id number]) Time Spent (min) 40
[2019-11-17 06:08] LABS: Basophils # (auto) 0.01 K/uL (0-0.2); Basophils % (auto) 0.1 %; Eosinophils # (auto) 0.01 K/uL (0-0.5); Eosinophils % (auto) 0.1 %; Hematocrit (blood only) 40.5 % (37-47); Hemoglobin 13.5 g/dL (12.0-16.0); Immature Granulocytes # (auto) 0.03 K/uL (0.00-0.02); Immature Granulocytes % (auto) 0.3 %; Lymphocytes # (auto) 0.89 K/uL (1.2-3.4); Lymphocytes % (auto) 8.3 %; Mean Corpuscular Hgb Conc 33.3 g/dL (32-36); Mean Platelet Volume 11.2 fL (7.4-10.4); Monocytes # (auto) 0.86 K/uL (0.11-0.59); Neutrophils # (auto) 8.96 K/uL (1.4-6.5); Neutrophils % (auto) 83.2 %; Platelet Count 183 K/uL (130-400); RDW Coefficient of Variation 13.7 % (11.5-14.5); RDW Standard Deviation 45.1 fL (36.4-46.3); White Blood Count 10.76 K/uL (4.8-10.8)
[2019-11-17] MEDS: TICAGRELOR 90 MG TAB PO SCH ×2 (06:15→19:47)
[2019-11-17 06:45] LABS: BUN Creatinine Ratio 20.6 (10-20); Calcium 9.1 mg/dl (8.5-10.1); Creatinine Clr Calc Pharmacy 60.8 ml/min; Est GFR (African American) 62.2; Est GFR (Non-African American) 53.6; Potassium 3.9 mmol/L (3.5-5.1)
--- NOTE | 2019-11-17 07:01 | XRay Report ---
XR chest 1V portable CLINICAL HISTORY: post cardiac cath RESPIRATORY DIFFICULTY COMPARISON STUDY: No previous studies for comparison. FINDINGS: The heart is borderline enlarged. There is elevation of interstitium asymmetric on the righ t. Asymmetric congestive failure/early pulmonary edema is suspected. There is no lobar consolidation. There is minor left basilar atelectasis.[ IMPRESSION: 1. Suspected subtle asymmetric congestive failure/pulmonary edema on the right. Clinical and radiogra phic follow-up is recommended. ACT 112: Negative or not required by law. Electronically signed by: Jose Mason M.D. 11/17/2019 6:59 AM
[2019-11-17 07:06] LABS: Troponin I 88.4 ng/ml (0-0.045)
--- NOTE | 2019-11-17 07:57 | Critical Care Progress Note ---
Date of Service November 17, 2019 Assessment & Plan (1) STEMI (ST elevation myocardial infarction): Reason Critically Ill: 74-year-old female presents to the ICU following STEMI and receiving PCI with ADEN x2 to the LAD; stable for downgrade from ICU following continued improvement in condition. Neuro: - CAM ICU negative Cardiac/Vascular: - STEMI: s/p heart cath with successful PCI with ADEN x2 to the LAD for 100% occlusion - Appreciate cardiology recommendations - Loaded with ticagrelor 180 mg in Clinical Lab Assistant - troponins peaked at 109, with subsequent downtrend overnight following cath - Echo demonstrated - Dual antiplatelet therapy for 1 year - decreased Lopressor from 2mg BID to 12.5mg BID - continue Zestril 5mg daily, Lopressor 12.5mg BID, Atorvastatin 80mg daily Respiratory: - Hypoxia: no history of pulmonary disease - no longer requiring supplemental oxygen support - Would suspect there is pulmonary congestion following acute DE - Continuous monitoring with pulse ox GI/Nutrition: - Heart healthy diet - Bentyl PRN for IBS RENAL/LYTES: - Creatinine within normal limits, monitor electrolytes : - Strict I's and O's - maki removed ENDO: - No history of diabetes or thyroid disease - TSH within normal limit - ICU hyperglycemic protocol HEME: - H&H stable, monitor routine CBCs ID: - No indication for infectious process at this time LINES/IV ACCESS: - PIVs x2 DVT Prophylaxis: - ambulate q8h (2) HTN (hypertension): (3) Dyslipidemia: (4) CAD (coronary artery disease): (5) Acute DE: Admission and Anticipated Discharge Date Admission Date: November 16, 2019 Supervising Physician Co-Signing Physician Notes Dr. Ugarte was resident physician during care of patient. I separately evaluated patient for anderson portions of the history and the exam. I was present during the critical portion of medical decision making, and I discussed the case with the resident. I generally agree with the findings and plan. Transition Bentyl from scheduled to as needed, I suspect that this was given as a as needed medication. Patient stable for downgrade and transfer out of ICU. Subjective Had no acute events overnight, continues to deny chest pain, shortness of breath, numbness/tingling, nausea, vomiting, abdominal pain, or increased swelling in her arms or legs Review of Systems Review of Systems: All systems reviewed & are unremarkable except as noted in Subjective Physical Exam Constitutional: WD/WN, vitals as above Eyes: PERRL, conjunctivae normal, anicteric sclerae Neck: trachea midline, no thyromegaly Respiratory: normal respiratory effort, lungs clear to auscultation Cardiovascular: Rate/Rhythm: regular rate and regular rhythm Heart Sounds: no gallop, no murmur and no cardiac rub Extremities: no pedal edema Gastrointestinal (Abdomen): normal bowel sounds, soft, nontender, no hepatosplenomegaly Musculoskeletal: no cyanosis or clubbing, extremities motor strength 5/5 Skin: no rashes, warm and dry Neurologic: PERRL, EOMI, accommodation nl, no face palsy, no dysarthria haritha p tendon reflexes 2+ bilaterally and moves all extremities Psychiatric: Orientation: alert and oriented x 3 Lymphatic: no cervical lymphadenopathy Results & Data Results & Data ([facility]) Vital Signs (Past 12 Hours) Vital Signs Temp Pulse Pulse Resp BP BP Pulse Ox 11/17/19 06:45 62 17 119/75 93 11/17/19 06:15 62 19 117/76 91 11/17/19 05:45 63 17 121/75 93 11/17/19 05:15 59 L 17 117/83 93 11/17/19 04:45 58 L 18 118/75 93 11/17/19 04:15 36.7 C 60 19 118/79 94 11/17/19 03:45 61 19 116/79 95 11/17/19 03:14 62 19 111/70 95 11/17/19 02:51 61 18 105/70 96 11/17/19 02:14 61 18 120/80 97 11/17/19 01:45 58 L 15 111/78 96 11/17/19 01:15 62 17 119/80 95 11/17/19 00:20 36.7 C 58 L 18 108/74 94 11/16/19 23:20 59 L 18 115/82 93 11/16/19 22:20 64 18 125/68 94 11/16/19 21:29 75 21 124/78 90 11/16/19 20:20 68 18 130/80 91 Laboratory Results 11/17/19 11/17/19 11/17/19 Range/Units 05:47 05:47 05:47 WBC 10.76 (4.8-10.8) K/uL RBC 4.50 (4.2-5.4) M/uL Hgb 13.5 (12.0-16.0) g/dL Hct 40.5 (37-47) % MCV 90.0 (80-100) fL MCH 30.0 (25-34) pg MCHC 33.3 (32-36) g/dL RDW Std Deviation 45.1 (36.4-46.3) fL RDW Coeff of Khurram 13.7 (11.5-14.5) % Plt Count 183 (130-400) K/uL MPV 11.2 H (7.4-10.4) fL Immature Gran % (Auto) 0.3 % Neut % (Auto) 83.2 % Lymph % (Auto) 8.3 % Stone % (Auto) 8.0 % Eos % (Auto) 0.1 % Baso % (Auto) 0.1 % Neut # (Auto) 8.96 H (1.4-6.5) K/uL Lymph # (Auto) 0.89 L (1.2-3.4) K/uL Stone # (Auto) 0.86 H (0.11-0.59) K/uL Eos # (Auto) 0.01 (0-0.5) K/uL Baso # (Auto) 0.01 (0-0.2) K/uL Immature Gran # (Auto) 0.03 H (0.00-0.02) K/uL PT (9.0-12.0) Seconds INR (0.9-1.1) APTT (21.0-31.0) Seconds PTT Ratio Activ Coag Time Kaolin (94-140) SECONDS Sodium 139 (136-145) mmol/L Potassium 3.9 (3.5-5.1) mmol/L Chloride 107 (98-107) mmol/L Carbon Dioxide 24 (21-32) mmol/L Anion Gap 8.0 (3-11) BUN 21 H (7-18) mg/dl Creatinine 1.04 (0.6-1.2) mg/dl Est Cr Clr Drug Dosing 60.8 ml/min Est GFR ( Amer) 62.2 Est GFR (Non-Af Amer) 53.6 BUN/Creatinine Ratio 20.6 H (10-20) Glucose 122 H (70-99) mg/dl POC Glucose (70-99) mg/dl Estimat Average Glucose 111 mg/dl Hemoglobin A1c 5.5 (4.5-5.6) % Calcium 9.1 (8.5-10.1) mg/dl Magnesium (1.8-2.4) mg/dl Total Bilirubin (0.2-1) mg/dl AST (15-37) U/L ALT (12-78) U/L Alkaline Phosphatase (45-117) U/L Total Creatine Kinase (26-192) U/L CK-MB (CK-2) (0.5-3.6) ng/ml CK/CKMB % Calc (0-3.0) Troponin I 88.400 H* (0-0.045) ng/ml Total Protein (6.4-8.2) gm/dl Albumin (3.4-5.0) gm/dl Globulin (2.5-4.0) gm/dl Albumin/Globulin Ratio (0.9-2) Triglycerides 122 (0-150) mg/dl Cholesterol 210 H (0-200) mg/dl LDL Cholesterol, Calc 124 mg/dl VLDL Cholesterol, Calc 24 mg/dl HDL Cholesterol 62 mg/dl Cholesterol/HDL Ratio 3 Lipase (73-393) U/L TSH (0.300-4.500) uIu/ml Urine Color Urine Appearance (Clear) Urine pH (4.5-7.5) Ur Specific [place] (1.000-1.030) Urine Protein (Negative) Urine Glucose (UA) (Negative) Urine Ketones (Negative) Urine Blood (Negative) Urine Nitrite (Negative) Urine Bilirubin (Negative) Urine Urobilinogen (Negative) Ur Leukocyte Esterase (Negative) Urine WBC (Auto) (0-5) /hpf Urine RBC (Auto) (0-4) /hpf U Hyaline Cast (Auto) (0-5) /lpf U Epithel Cells (Auto) (0-5) /lpf Urine Bacteria (Auto) (Negative) Nasal Screen MRSA (PCR) (Negative) 11/17/19 11/16/19 11/16/19 Range/Units 00:29 22:05 20:34 WBC (4.8-10.8) K/uL RBC (4.2-5.4) M/uL Hgb (12.0-16.0) g/dL Hct (37-47) % MCV (80-100) fL MCH (25-34) pg MCHC (32-36) g/dL RDW Std Deviation (36.4-46.3) fL RDW Coeff of Khurram (11.5-14.5) % Plt Count (130-400) K/uL MPV (7.4-10.4) fL Immature Gran % (Auto) % Neut % (Auto) % Lymph % (Auto) % Stone % (Auto) % Eos % (Auto) % Baso % (Auto) % Neut # (Auto) (1.4-6.5) K/uL Lymph # (Auto) (1.2-3.4) K/uL [place] # (Auto) (0.11-0.59) K/uL Eos # (Auto) (0-0.5) K/uL Baso # (Auto) (0-0.2) K/uL Immature Gran # (Auto) (0.00-0.02) K/uL PT (9.0-12.0) Seconds INR (0.9-1.1) APTT (21.0-31.0) Seconds PTT Ratio Activ Coag Time Kaolin (94-140) SECONDS Sodium (136-145) mmol/L Potassium (3.5-5.1) mmol/L Chloride (98-107) mmol/L Carbon Dioxide (21-32) mmol/L Anion Gap (3-11) BUN (7-18) mg/dl Creatinine (0.6-1.2) mg/dl Est Cr Clr Drug Dosing ml/min Est GFR ( Amer) Est GFR (Non-Af Amer) BUN/Creatinine Ratio (10-20) Glucose (70-99) mg/dl POC Glucose 163 H (70-99) mg/dl Estimat Average Glucose mg/dl Hemoglobin A1c (4.5-5.6) % Calcium (8.5-10.1) mg/dl Magnesium (1.8-2.4) mg/dl Total Bilirubin (0.2-1) mg/dl AST (15-37) U/L ALT (12-78) U/L Alkaline Phosphatase (45-117) U/L Total Creatine Kinase (26-192) U/L CK-MB (CK-2) (0.5-3.6) ng/ml CK/CKMB % Calc (0-3.0) Troponin I 109.000 H* (0-0.045) ng/ml Total Protein (6.4-8.2) gm/dl Albumin (3.4-5.0) gm/dl Globulin (2.5-4.0) gm/dl Albumin/Globulin Ratio (0.9-2) Triglycerides (0-150) mg/dl Cholesterol (0-200) mg/dl LDL Cholesterol, Calc mg/dl VLDL Cholesterol, Calc mg/dl HDL Cholesterol mg/dl Cholesterol/HDL Ratio Lipase (73-393) U/L TSH (0.300-4.500) uIu/ml Urine Color Yellow Urine Appearance Clear (Clear) Urine pH 5.5 (4.5-7.5) Ur Specific [place] 1.036 H (1.000-1.030) Urine Protein Negative (Negative) Urine Glucose (UA) Negative (Negative) Urine Ketones Negative (Negative) Urine Blood 1+ H (Negative) Urine Nitrite Negative (Negative) Urine Bilirubin Negative (Negative) Urine Urobilinogen Negative (Negative) Ur Leukocyte Esterase Negative (Negative) Urine WBC (Auto) 1-5 (0-5) /hpf Urine RBC (Auto) 0-4 (0-4) /hpf U Hyaline Cast (Auto) 1-5 (0-5) /lpf U Epithel Cells (Auto) 10-20 H (0-5) /lpf Urine Bacteria (Auto) Negative (Negative) Nasal Screen MRSA (PCR) (Negative) 11/16/19 11/16/19 11/16/19 Range/Units 19:30 18:08 17:45 WBC (4.8-10.8) K/uL RBC (4.2-5.4) M/uL Hgb (12.0-16.0) g/dL Hct (37-47) % MCV (80-100) fL MCH (25-34) pg MCHC (32-36) g/dL RDW Std Deviation (36.4-46.3) fL RDW Coeff of Khurram (11.5-14.5) % Plt Count (130-400) K/uL MPV (7.4-10.4) fL Immature Gran % (Auto) % Neut % (Auto) % Lymph % (Auto) % Stone % (Auto) % Eos % (Auto) % Baso % (Auto) % Neut # (Auto) (1.4-6.5) K/uL Lymph # (Auto) (1.2-3.4) K/uL [place] # (Auto) (0.11-0.59) K/uL Eos # (Auto) (0-0.5) K/uL Baso # (Auto) (0-0.2) K/uL Immature Gran # (Auto) (0.00-0.02) K/uL PT (9.0-12.0) Seconds INR (0.9-1.1) APTT (21.0-31.0) Seconds PTT Ratio Activ Coag Time Kaolin 224 H 285 H (94-140) SECONDS Sodium (136-145) mmol/L Potassium (3.5-5.1) mmol/L Chloride (98-107) mmol/L Carbon Dioxide (21-32) mmol/L Anion Gap (3-11) BUN (7-18) mg/dl Creatinine (0.6-1.2) mg/dl Est Cr Clr Drug Dosing ml/min Est GFR ( Amer) Est GFR (Non-Af Amer) BUN/Creatinine Ratio (10-20) Glucose (70-99) mg/dl POC Glucose (70-99) mg/dl Estimat Average Glucose mg/dl Hemoglobin A1c (4.5-5.6) % Calcium (8.5-10.1) mg/dl Magnesium (1.8-2.4) mg/dl Total Bilirubin (0.2-1) mg/dl AST (15-37) U/L ALT (12-78) U/L Alkaline Phosphatase (45-117) U/L Total Creatine Kinase (26-192) U/L CK-MB (CK-2) (0.5-3.6) ng/ml CK/CKMB % Calc (0-3.0) Troponin I (0-0.045) ng/ml Total Protein (6.4-8.2) gm/dl Albumin (3.4-5.0) gm/dl Globulin (2.5-4.0) gm/dl Albumin/Globulin Ratio (0.9-2) Triglycerides (0-150) mg/dl Cholesterol (0-200) mg/dl LDL Cholesterol, Calc mg/dl VLDL Cholesterol, Calc mg/dl HDL Cholesterol mg/dl Cholesterol/HDL Ratio Lipase (73-393) U/L TSH (0.300-4.500) uIu/ml Urine Color Urine Appearance (Clear) Urine pH (4.5-7.5) Ur Specific [place] (1.000-1.030) Urine Protein (Negative) Urine Glucose (UA) (Negative) Urine Ketones (Negative) Urine Blood (Negative) Urine Nitrite (Negative) Urine Bilirubin (Negative) Urine Urobilinogen (Negative) Ur Leukocyte Esterase (Negative) Urine WBC (Auto) (0-5) /hpf Urine RBC (Auto) (0-4) /hpf U Hyaline Cast (Auto) (0-5) /lpf U Epithel Cells (Auto) (0-5) /lpf Urine Bacteria (Auto) (Negative) Nasal Screen MRSA (PCR) Negative (Negative) 11/16/19 11/16/19 11/16/19 Range/Units 17:06 17:06 17:06 WBC 9.94 (4.8-10.8) K/uL RBC 4.34 (4.2-5.4) M/uL Hgb 13.1 (12.0-16.0) g/dL Hct 39.2 (37-47) % MCV 90.3 (80-100) fL MCH 30.2 (25-34) pg MCHC 33.4 (32-36) g/dL RDW Std Deviation 44.8 (36.4-46.3) fL RDW Coeff of Khurram 13.5 (11.5-14.5) % Plt Count 195 (130-400) K/uL MPV 11.4 H (7.4-10.4) fL Immature Gran % (Auto) 0.3 % Neut % (Auto) 67.3 % Lymph % (Auto) 22.8 % Stone % (Auto) 6.6 % Eos % (Auto) 2.5 % Baso % (Auto) 0.5 % Neut # (Auto) 6.68 H (1.4-6.5) K/uL Lymph # (Auto) 2.27 (1.2-3.4) K/uL Stone # (Auto) 0.66 H (0.11-0.59) K/uL Eos # (Auto) 0.25 (0-0.5) K/uL Baso # (Auto) 0.05 (0-0.2) K/uL Immature Gran # (Auto) 0.03 H (0.00-0.02) K/uL PT 10.6 (9.0-12.0) Seconds INR 1.0 (0.9-1.1) APTT 22.4 (21.0-31.0) Seconds PTT Ratio 0.8 Activ Coag Time Kaolin (94-140) SECONDS Sodium 140 (136-145) mmol/L Potassium 3.7 (3.5-5.1) mmol/L Chloride 108 H (98-107) mmol/L Carbon Dioxide 22 (21-32) mmol/L Anion Gap 10.0 (3-11) BUN 22 H (7-18) mg/dl Creatinine 1.19 (0.6-1.2) mg/dl Est Cr Clr Drug Dosing 57.7 ml/min Est GFR ( Amer) 52.8 Est GFR (Non-Af Amer) 45.6 BUN/Creatinine Ratio 18.7 (10-20) Glucose 155 H (70-99) mg/dl POC Glucose (70-99) mg/dl Estimat Average Glucose mg/dl Hemoglobin A1c (4.5-5.6) % Calcium 8.9 (8.5-10.1) mg/dl Magnesium 2.1 (1.8-2.4) mg/dl Total Bilirubin 0.3 (0.2-1) mg/dl AST 26 (15-37) U/L ALT 20 (12-78) U/L Alkaline Phosphatase 68 (45-117) U/L Total Creatine Kinase 156 (26-192) U/L CK-MB (CK-2) 13.2 H (0.5-3.6) ng/ml CK/CKMB % Calc 8.5 H (0-3.0) Troponin I 0.866 H* (0-0.045) ng/ml Total Protein 7.2 (6.4-8.2) gm/dl Albumin 3.7 (3.4-5.0) gm/dl Globulin 3.5 (2.5-4.0) gm/dl Albumin/Globulin Ratio 1.1 (0.9-2) Triglycerides (0-150) mg/dl Cholesterol (0-200) mg/dl LDL Cholesterol, Calc mg/dl VLDL Cholesterol, Calc mg/dl HDL Cholesterol mg/dl Cholesterol/HDL Ratio Lipase 114 (73-393) U/L TSH 3.400 (0.300-4.500) uIu/ml Urine Color Urine Appearance (Clear) Urine pH (4.5-7.5) Ur Specific [place] (1.000-1.030) Urine Protein (Negative) Urine Glucose (UA) (Negative) Urine Ketones (Negative) Urine Blood (Negative) Urine Nitrite (Negative) Urine Bilirubin (Negative) Urine Urobilinogen (Negative) Ur Leukocyte Esterase (Negative) Urine WBC (Auto) (0-5) /hpf Urine RBC (Auto) (0-4) /hpf U Hyaline Cast (Auto) (0-5) /lpf U Epithel Cells (Auto) (0-5) /lpf Urine Bacteria (Auto) (Negative) Nasal Screen MRSA (PCR) (Negative) Resident Activity Tracking Resident Involvement: Resident Care Provided Care Provided: Adult Hospital Medicine (Critical Care) (1) Acute DE Involved coronary artery: unspecified coronary artery Myocardial infarction type: ST elevation myocardial infarction Qualified Code(s): I21.3 - ST elevation (STEMI) myocardial infarction of unspecified site
[2019-11-17 08:26] LABS: Estimated Average Glucose 111 mg/dl; Hemoglobin A1C 5.5 % (4.5-5.6)
[2019-11-17] MEDS: ATORVASTATIN 40 MG TAB PO SCH (08:41)
[2019-11-17] MEDS: ASPIRIN 81 MG ECTAB PO SCH (08:41)
[2019-11-17] MEDS: CITALOPRAM 20 MG TAB PO SCH (08:41)
[2019-11-17] MEDS: METOPROLOL TARTRATE 25 MG TAB PO SCH ×3 (08:42→19:47)
[2019-11-17] MEDS: lisinopriL 5 MG TAB PO SCH ×2 (08:42→10:23)
[2019-11-17] MEDS ORDERED: DICYCLOMINE HCL 10 MG CAP PO SCH (09:00)
--- NOTE | 2019-11-17 11:12 | Cardiology Progress Note ---
Date of Service November 17, 2019 Assessment & Plan (1) STEMI (ST elevation myocardial infarction): 2. Ischemic cardiomyopathylast EF 35%, LAD distribution wall motion abnormality 3. Acute systolic heart failure 4. Hypertension 5. Dyslipidemia Minimal residual chest pain this morning. Troponin has peaked. Hemodynamically and electrically stable overnight Well-perfused with minimal residual congestion on exam after IV Lasix No apparent access site complications Post procedure renal function stable Continue DAPT with aspirin, ticagrelor Continue current metoprolol, lisinopril. Will add spironolactone Continue high intensity statin Okay to transfer to telemetry today. Plan for repeat limited echo tomorrow to eval for LV thrombus. Possible discharge tomorrow if remains stable. Admission and Anticipated Discharge Date Admission Date: November 16, 2019 Subjective Still with mild residual resting chest discomfort. Much improved from adm ission. No significant dyspnea. Difficulty urinating last night and maki in place. Telemetry reviewed -- no events Echo - EF 35-40%, Anterior and apical severe hypokinesis to akinesis. Review of Systems Review of Systems: All systems reviewed & are unremarkable except as noted in HPI & below Physical Exam Physical Exam: General: Comfortable, up in chair HEENT: Sclerae anicteric, mucous membranes moist Lungs: Clear to auscultation bilaterally, no rhonchi or wheezes Cardiac: Regular, no murmurs. No JVD Abdomen: Soft, nontender Extremities: Warm, well perfused, no edema. 2+ radial pulses bilaterally. RT radial without ecchymosis or hematoma Neuro: Nonfocal Psych: Alert orient x3, normal affect and mood Results & Data ([facility]) Vital Signs (Past 12 Hours) Vital Signs Temp Pulse Pulse Resp BP BP Pulse Ox 11/17/19 11:01 67 20 109/79 94 11/17/19 10:01 69 20 113/72 92 11/17/19 09:01 70 24 110/73 92 11/17/19 08:16 98.4 F 66 24 82/62 L 93 11/17/19 07:45 77 22 81/73 L 93 11/17/19 07:15 71 19 95/62 L 92 11/17/19 06:45 62 17 119/75 93 11/17/19 06:15 62 19 117/76 91 11/17/19 05:45 63 17 121/75 93 11/17/19 05:15 59 L 17 117/83 93 11/17/19 04:45 58 L 18 118/75 93 11/17/19 04:15 98.1 F 60 19 118/79 94 11/17/19 03:45 61 19 116/79 95 11/17/19 03:14 62 19 111/70 95 11/17/19 02:51 61 18 105/70 96 11/17/19 02:14 61 18 120/80 97 11/17/19 01:45 58 L 15 111/78 96 11/17/19 01:15 62 17 119/80 95 11/17/19 00:20 98.1 F 58 L 18 108/74 94 11/16/19 23:20 59 L 18 115/82 93 PG Care Time/CCT Total # of Minutes Spent Total Time Spent with Patient: Total time spent is greater than 50% in coordination of care (as documented) at patient's floor/unit and/or counseling patient: Coding Level of Care Code 15017 Subseq Hosp Care Lvl 3 Diagnoses STEMI (ST elevation myocardial infarction) I21.3
[2019-11-17] MEDS: SPIRONOLACTONE 12.5 MG TAB PO SCH (12:03)
--- NOTE | 2019-11-17 13:45 | Billing Data ---
Date of Service November 17, 2019 Coding Level of Care Code 43140 Subseq Hosp Care Lvl 2
--- NOTE | 2019-11-17 16:00 | XCELERA ---
[id number]
--- NOTE | 2019-11-17 20:57 | Electrocardiogram Report ---
Test Reason : Blood Pressure : / mmHG Vent. Rate : 067 BPM Atrial Rate : 067 BPM P-R Int : 130 ms QRS Dur : 108 ms QT Int : 430 ms P-R-T Axes : 052 -30 046 degrees QTc Int : 454 ms Normal sinus rhythm Left axis deviation Minimal voltage criteria for LVH, may be normal variant Septal infarct , age undetermined ST elevation, consider lateral injury ST elevation, consider anterior injury Abnormal ECG No previous ECGs available Confirmed by Herbert Garcia ([id number]) on 11/17/2019 8:57:32 PM Referred By: REFERRED SELF Confirmed By:Herbert Garcia
--- NOTE | 2019-11-17 21:04 | Electrocardiogram Report ---
Test Reason : Blood Pressure : / mmHG Vent. Rate : 066 BPM Atrial Rate : 066 BPM P-R Int : 136 ms QRS Dur : 104 ms QT Int : 402 ms P-R-T Axes : 065 -32 053 degrees QTc Int : 421 ms Normal sinus rhythm Left axis deviation Minimal voltage criteria for LVH, may be normal variant ST elevation, consider lateral injury pattern Lateral infarct Abnormal ECG When compared with ECG of 16-NOV-2019 17:03, ST no longer elevated in Anterior leads Confirmed by Herbert Garcia ([id number]) on 11/17/2019 9:04:07 PM Referred By: REFERRED SELF Confirmed By:Herbert Garcia
--- NOTE | 2019-11-17 21:13 | Electrocardiogram Report ---
Test Reason : Blood Pressure : / mmHG Vent. Rate : 073 BPM Atrial Rate : 073 BPM P-R Int : 130 ms QRS Dur : 100 ms QT Int : 350 ms P-R-T Axes : 067 -28 074 degrees QTc Int : 385 ms Sinus rhythm with Premature supraventricular complexes and with occasional Premature ventricular comp lexes Lateral infarct T wave abnormality, consider lateral ischemia Anterior T wave abnormality Abnormal ECG When compared with ECG of 16-NOV-2019 18:55, Premature ventricular complexes are now Present Premature supraventricular complexes are now Present Anterior T wave abnormality is now present Confirmed by Herbert Garcia ([id number]) on 11/17/2019 9:12:50 PM Referred By: REFERRED SELF Confirmed By:Herbert Garcia
--- NOTE | 2019-11-17 21:18 | Electrocardiogram Report ---
Test Reason : Blood Pressure : / mmHG Vent. Rate : 069 BPM Atrial Rate : 069 BPM P-R Int : 128 ms QRS Dur : 102 ms QT Int : 396 ms P-R-T Axes : 050 -27 083 degrees QTc Int : 424 ms Sinus rhythm with occasional Premature ventricular complexes Lateral infarct T wave abnormality, consider lateral ischemia Abnormal ECG When compared with ECG of 16-NOV-2019 21:20, No significant change was found Confirmed by Herbert Garcia ([id number]) on 11/17/2019 9:17:42 PM Referred By: REFERRED SELF Confirmed By:Herbert Garcia
--- NOTE | 2019-11-17 23:14 | Hospitalist Progress Note ---
Date of Service November 17, 2019 Assessment & Plan (1) STEMI (ST elevation myocardial infarction): 2nd 100% occluded LAD. s/p ADEN x [address] Mejia with excellent results. Peak trop - 109. Continue ASA 81mg daily, Brilinta 90 mg BID, metoprolol tartrate 12.5mg bid, lisinopril 5mg daily, lipitor 80mg daily. will need cardiac rehab and weight loss. Stop amlodipine 10mg daily. Stop benazepril 20mg daily (2) Dyslipidemia: changed atorvastatin from 20 to 80mg daily. a1c 5.5% LDL 124 (3) CAD (coronary artery disease): see above in "STEMI" L Cx and RCA without significant disease (4) HTN (hypertension): controlled (5) Morbid obesity with BMI of 40.0-44.9, adult: BMI 42 TSH 3.4 a1c 5.5% needs weight loss - cardiac rehab after d/c (6) Ischemic cardiomyopathy: EF 35-40% on echo today depressed LV function 2nd to LAD infarction hopefully with time and disease-modifying agents LV function will improve will need to check daily weights at home, watch salt/fluid intake, etc. Admission and Anticipated Discharge Date Admission Date: November 16, 2019 Subjective patient with intermittent, mild discomfort over lower chest today but feels tremendously better than at admission. no dyspnea. no abdominal pain. eating well. tele wnl. Review of Systems Constitutional: no fatigue and no anorexia Respiratory: no cough, no dyspnea and no dyspnea on exertion Cardiovascular: as per Subjective / HPI; no orthopnea and no edema Gastrointestinal: no nausea and no vomiting Physical Exam Constitutional: well developed, well nourished and + morbidly obese; no acute distress and no altered mental status ENMT: external ear and nose normal, oropharynx normal Respiratory: normal respiratory effort, lungs clear to auscultation Auscultation: + crackles (Scant - bases) Cardiovascular: Rate/Rhythm: regular rate and regular rhythm Heart Sounds: normal S1 and normal S2; no murmur Vessels: posterior tibial pulses present and dorsalis pedis pulses present; no JVD Extremities: no edema Gastrointestinal (Abdomen): normal bowel sounds, soft, nontender, no hepatosplenomegaly Skin: mild bruising over right wrist Psychiatric: A+Ox3, euthymic affect Results & Data Results & Data ([facility]) Vital Signs (Past 12 Hours) Vital Signs Temp Pulse Pulse Resp BP BP Pulse Ox 11/17/19 20:00 36.7 C 65 18 100/65 97 11/17/19 19:43 37.0 C 66 19 100/65 93 11/17/19 16:00 71 11/17/19 15:10 36.7 C 69 17 91/61 L 96 11/17/19 13:40 36.8 C 73 20 145/76 H 92 11/17/19 12:06 36.8 C 68 21 117/83 93 11/17/19 12:00 66 21 94 Laboratory Results Laboratory Results - last 24 hr 11/17/19 11/17/19 11/17/19 00:29 05:47 05:47 WBC 10.76 RBC 4.50 Hgb 13.5 Hct 40.5 MCV 90.0 MCH 30.0 MCHC 33.3 RDW Std Deviation 45.1 RDW Coeff of Khurram 13.7 Plt Count 183 MPV 11.2 H Immature Gran % (Auto) 0.3 Neut % (Auto) 83.2 Lymph % (Auto) 8.3 [place] % (Auto) 8.0 Eos % (Auto) 0.1 Baso % (Auto) 0.1 Neut # (Auto) 8.96 H Lymph # (Auto) 0.89 L [place] # (Auto) 0.86 H Eos # (Auto) 0.01 Baso # (Auto) 0.01 Immature Gran # (Auto) 0.03 H Sodium Potassium Chloride Carbon Dioxide Anion Gap BUN Creatinine Est Cr Clr Drug Dosing Est GFR ( Amer) Est GFR (Non-Af Amer) BUN/Creatinine Ratio Glucose Estimat Average Glucose 111 Hemoglobin A1c 5.5 Calcium Troponin I 109.000 H* Triglycerides Cholesterol LDL Cholesterol, Calc VLDL Cholesterol, Calc HDL Cholesterol Cholesterol/HDL Ratio 11/17/19 05:47 WBC RBC Hgb Hct MCV MCH MCHC RDW Std Deviation RDW Coeff of Khurram Plt Count MPV Immature Gran % (Auto) Neut % (Auto) Lymph % (Auto) [place] % (Auto) Eos % (Auto) Baso % (Auto) Neut # (Auto) Lymph # (Auto) [place] # (Auto) Eos # (Auto) Baso # (Auto) Immature Gran # (Auto) Sodium 139 Potassium 3.9 Chloride 107 Carbon Dioxide 24 Anion Gap 8.0 BUN 21 H Creatinine 1.04 Est Cr Clr Drug Dosing 60.8 Est GFR ( Amer) 62.2 Est GFR (Non-Af Amer) 53.6 BUN/Creatinine Ratio 20.6 H Glucose 122 H Estimat Average Glucose Hemoglobin A1c Calcium 9.1 Troponin I 88.400 H* Triglycerides 122 Cholesterol 210 H LDL Cholesterol, Calc 124 VLDL Cholesterol, Calc 24 HDL Cholesterol 62 Cholesterol/HDL Ratio 3 PG Care Time/CCT Total # of Minutes Spent Total Time Spent with Patient: Total time spent is greater than 50% in coordination of care (as documented) at patient's floor/unit and/or counseling patient: Coding Level of Care Code 66178 Subseq Hosp Care Lvl 1 Diagnoses STEMI (ST elevation myocardial infarction) I21.3 Dyslipidemia E78.5 CAD (coronary artery disease) I25.10 HTN (hypertension) I10 Morbid obesity with BMI of 40.0-44.9, adult E66.01; Z68.41 Ischemic cardiomyopathy I25.5
[2019-11-18] MEDS: TICAGRELOR 90 MG TAB PO SCH (06:15)
[2019-11-18 07:34] LABS: BUN Creatinine Ratio 24.4 (10-20); Calcium 8.8 mg/dl (8.5-10.1); Creatinine Clr Calc Pharmacy 49.3 ml/min; Est GFR (African American) 49.3; Est GFR (Non-African American) 42.5; Potassium 3.9 mmol/L (3.5-5.1)
[2019-11-18] MEDS: METOPROLOL TARTRATE 25 MG TAB PO SCH (08:05)
[2019-11-18] MEDS: SPIRONOLACTONE 12.5 MG TAB PO SCH (08:06)
[2019-11-18] MEDS: ATORVASTATIN 40 MG TAB PO SCH (08:06)
[2019-11-18] MEDS: lisinopriL 5 MG TAB PO SCH (08:07)
[2019-11-18] MEDS: ASPIRIN 81 MG ECTAB PO SCH (08:07)
[2019-11-18] MEDS: CITALOPRAM 20 MG TAB PO SCH (08:08)
[2019-11-18] MEDS ORDERED: DICYCLOMINE HCL 10 MG CAP PO PRN (09:00)
--- NOTE | 2019-11-18 11:08 | Hospitalist Progress Note ---
Date of Service November 18, 2019 Assessment & Plan (1) STEMI (ST elevation myocardial infarction): 2nd 100% occluded LAD. s/p ADEN x [address] Mejia with excellent results. Peak trop - 109. Continue ASA 81mg daily, Brilinta 90 mg BID, metoprolol tartrate 12.5mg bid, lisinopril 5mg daily, lipitor 80mg daily. will need cardiac rehab and weight loss. Stop amlodipine 10mg daily. Stop benazepril 20mg daily will d/c home per cardiology (2) Dyslipidemia: changed atorvastatin from 20 to 80mg daily. a1c 5.5% LDL 124 (3) CAD (coronary artery disease): see above in "STEMI" L Cx and RCA without significant disease (4) HTN (hypertension): controlled (5) Morbid obesity with BMI of 40.0-44.9, adult: BMI 42 TSH 3.4 a1c 5.5% needs weight loss - cardiac rehab after d/c (6) Ischemic cardiomyopathy: EF 35-40% on echo depressed LV function 2nd to LAD infarction hopefully with time and disease-modifying agents LV function will improve will need to check daily weights at home, watch salt/fluid intake, etc. Admission and Anticipated Discharge Date Admission Date: November 16, 2019 Subjective patient was sitting up in a chair, feeling well, no chest pain, no dyspnea ate her breakfast vitals stable, labs stable cardiology plans to d/c home Review of Systems Review of Systems: All systems reviewed & are unremarkable except as noted in Subjective Physical Exam Constitutional: WD/WN, vitals as above Eyes: PERRL, conjunctivae normal, anicteric sclerae ENMT: external ear and nose normal, oropharynx normal Neck: trachea midline, no thyromegaly Respiratory: normal respiratory effort, lungs clear to auscultation Cardiovascular: RRR, no murmur, no edema Gastrointestinal (Abdomen): normal bowel sounds, soft, nontender, no hepatosplenomegaly Musculoskeletal: no cyanosis or clubbing, extremities motor strength 5/5 Skin: no rashes, warm and dry Neurologic: patellar DTR's 2+ bilat, sensation intact and PERRL, EOMI, accommodation nl, no face palsy, no dysarthria Psychiatric: A+Ox3, euthymic affect Lymphatic: no cervical or axillary lymphadenopathy Results & Data Results & Data ([facility]) Vital Signs (Past 12 Hours) Vital Signs Temp Pulse Pulse Resp BP Pulse Ox 11/18/19 09:34 36.8 C 65 18 114/63 96 11/18/19 08:00 63 11/18/19 07:48 36.8 C 65 18 114/63 96 11/18/19 03:44 37 C 68 20 102/67 96 11/18/19 00:00 65 11/17/19 23:16 37 C 68 20 110/73 94 Laboratory Results Laboratory Results - last 24 hr 11/18/19 11/18/19 06:27 07:37 Sodium 139 Potassium 3.9 Chloride 109 H Carbon Dioxide 22 Anion Gap 8.0 BUN 31 H Creatinine 1.26 H Est Cr Clr Drug Dosing 49.3 Est GFR ( Amer) 49.3 Est GFR (Non-Af Amer) 42.5 BUN/Creatinine Ratio 24.4 H Glucose 102 H POC Glucose 146 H Calcium 8.8 Medications Administered Current Inpatient Medications Acetaminophen (Acetaminophen 325 Mg Tab) 650 mg PO Q4H PRN PRN Reason: MILD Pain (Scale 1,2,3) Stop: 12/16/19 18:34 Last Admin: 11/16/19 21:41 Dose: 650 mg Documented by: Aspirin (Aspirin 81 Mg Ectab) [facility] [place] Stop: 12/17/19 08:59 Last Admin: 11/18/19 08:07 Dose: 81 mg Documented by: Atorvastatin Calcium (Atorvastatin 40 Mg Tab) 80 mg PO QAM [facility] Stop: 12/17/19 08:59 Last Admin: 11/18/19 08:06 Dose: 80 mg Documented by: Citalopram Hydrobromide (Citalopram 20 Mg Tab) 20 mg PO DAILY [facility] Stop: 12/17/19 08:59 Last Admin: 11/18/19 08:08 Dose: 20 mg Documented by: Dicyclomine HCl (Dicyclomine Hcl 10 Mg Cap) 10 mg PO DAILY PRN PRN Reason: IBS related abdominal pain Stop: 12/18/19 08:59 Lisinopril (Lisinopril 5 Mg Tab) 5 mg PO QAM [facility] Stop: 12/17/19 08:59 Last Admin: 11/18/19 08:07 Dose: 5 mg Documented by: Metoprolol Tartrate (Metoprolol Tartrate 25 Mg Tab) 12.5 mg PO BID [facility] Stop: 12/17/19 20:59 Last Admin: 11/18/19 08:05 Dose: 12.5 mg Documented by: Nitroglycerin (Nitroglycerin Sl 0.4 Mg/Tab Tab) 0.4 mg SL PRN PRN PRN Reason: Chest Pain Stop: 12/16/19 18:34 Last Admin: 11/16/19 21:25 Dose: 0.4 mg Documented by: Ondansetron HCl (Ondansetron Inj 2 Mg/Ml 2 Ml Vial) 4 mg IV Q6H PRN PRN Reason: Nausea And Vomiting Stop: 12/16/19 18:34 Spironolactone (Spironolactone 12.5 Mg Tab) 12.5 mg PO DAILY [facility] Stop: 12/17/19 11:14 Last Admin: 11/18/19 08:06 Dose: 12.5 mg Documented by: Ticagrelor (Ticagrelor 90 Mg Tab) 90 mg PO Q12H [facility] Stop: 12/17/19 05:59 Last Admin: 11/18/19 06:15 Dose: 90 mg Documented by: PG Care Time/CCT Total # of Minutes Spent Total Time Spent with Patient: Total time spent is greater than 50% in coordination of care (as documented) at patient's floor/unit and/or counseling patient: Coding Level of Care Code 22003 Subseq Hosp Care Lvl 2 Diagnoses STEMI (ST elevation myocardial infarction) I21.3 Dyslipidemia E78.5 CAD (coronary artery disease) I25.10 HTN (hypertension) I10 Morbid obesity with BMI of 40.0-44.9, adult E66.01; Z68.41 Ischemic cardiomyopathy I25.5
--- NOTE | 2019-11-18 18:07 | XCELERA ---
[id number]
--- NOTE | 2019-11-22 18:20 | Discharge Summary ---
Date of Service November 22, 2019 Admission HPI Per Admitting Provider 76-year-old woman here with acute chest pain and ECG concerning for acute OR. Patient seen emergently in the ED after heart alert activated en route by EMS. Past cardiac history remarkable for remote heart catheterization by Dr. Muller. Per patient told she has small vessel disease if not require stenting. Cardiac risk factors include hypertension, dyslipidemia. Other medical issues include irritable bowel syndrome, obesity. Chest pain began approximately 20 minutes prior to calling EMS. Symptoms began after she was mowing her lawn with a push mower. Describes 8/10 substernal pain with associated vomiting, diaphoresis. Denies similar symptoms in the past. Given nitroglycerin, fentanyl in route. Pain down to 6/10 on arrival. Hemodynamically stable. EKG showed sinus rhythm with lateral ST elevations and occasional PVCs. Specialty Data Cardiology Cardiac catheterization/PCI 11/16/2019: 1. Acute 100% proximal LAD occlusion 2. Minimal non-culprit vessel coronary artery disease 3. Elevated intracardiac filling pressure 4. Successful PCI of ostial to mid LAD with 2 overlapping drug-eluting stents (3.5 x 28, 2.75 x 33 mm Xience Grace; postdilated with 4.0 NC). Echo 11/17/2019: EF 35 to 40%, large LAD territory infarct, mild LVH, no LV thrombus, aortic valve sclerosis, mild MR, mild portal hypertension, estimated PASP 45-50 Discharge Data Consultations 11/16/19 18:41 Consult Cardiac Rehabilitation Routine Consult Case Management - Discharge Planning Routine Consult Hospitalist Routine Consult Plaster Whittler Routine Procedures Performed Operation Date: 11/16/19 16:45 Actual Procedures p Aspiration/PCI w/ADEN for Stemi - Bird Mejia MD s Cineradiography w/Routine Exam - Bird Mejia MD s Cath, Left with Cors and Vent - Bird Mejia MD s IVUS Coronary Single Vessel - Bird Mejia MD Hospital Course (1) STEMI (ST elevation myocardial infarction): 2. Ischemic cardiomyopathylast EF 35%, LAD distribution wall motion abnormality 3. Acute systolic heart failure 4. Hypertension 5. Dyslipidemia Patient taken emergently for cardiac catheterization and was found to have an occluded mid LAD which was treated with 2 overlapping drug-eluting stents. Small second diagonal at site of occlusion left with ostial stenosis and residual sluggish flow. LV filling pressures high post procedure and was given 1 dose of IV Lasix. Post procedure admitted to ICU where had minimal residual chest pain. She remained hemodynamically and electrically stable. She had no significant access site complications. Her renal function remained stable. Troponin peaked at 109. Post procedure echocardiogram showed moderate LV d ysfunction with an EF of 35 to 40% and LAD distribution wall motion normality. No LV thrombus noted on echo on hospital day 2 and limited echo on hospital day 3. On day of discharge patient feeling well and was discharged home on DAPT with aspirin, ticagrelor along and GDMT with new Toprol-XL, lisinopril and spironolactone. Follow-up with cardiology in 1 to 2 weeks. Discharge Instructions Home Medications citalopram 20 mg PO DAILY 11/17/19 [History Confirmed 11/17/19] dicyclomine 10 mg PO DAILY 11/17/19 [History Confirmed 11/17/19] aspirin 81 mg PO QAM #30 tab 11/18/19 [Rx] atorvastatin 80 mg PO QAM #30 tab 11/18/19 [Rx] lisinopril [Zestril] 5 mg PO QAM #30 tab 11/18/19 [Rx] metoprolol succinate 25 mg PO DAILY #30 tab 11/18/19 [Rx] nitroglycerin [Nitrostat] 0.4 mg SUBLINGUAL PRN PRN #30 tab 11/18/19 [Rx] spironolactone 12.5 mg PO DAILY #15 tab 11/18/19 [Rx] ticagrelor [Brilinta] 90 mg PO Q12H #30 tab 11/18/19 [Rx] Coding Level of Care Code D/C Day Management <30 mins Diagnoses STEMI (ST elevation myocardial infarction) I21.3
== END 2019-11-18 12:20 | disposition home or self-care (01) | DRG 246 ==
LOC: ED 16:56 → 1E 18:41 → 2S 11-17 11:16